=== PATIENT | female | born 1995 | race African-American/Black ===

== ENCOUNTER 2018-01-05 10:33 | Emergency (ER) | payer OTHER ==
[~2018-01-05] VITALS: Ht 172.7 cm; Wt 55.3 kg
--- NOTE | 2018-01-05 11:11 | ED GI/GU/ABDOMINAL COMPLAINT ---
History of Present Illness General Chief Complaint: Abdominal Pain/Flank Pain Stated Complaint: LOWER ABD PAIN Source: patient Exam Limitations: no limitations Vital Signs & Intake/Output Vital Signs & Intake/Output Vital Signs Date Time Temp Pulse Resp B/P B/P Pulse O2 O2 Flow FiO2 Mean Ox Delivery Rate 01/05 1916 98.3 97 17 135/73 100 Room Air 01/05 1529 97.8 94 16 119/71 100 Room Air 01/05 1154 98 Room Air 01/05 1128 98 16 135/75 98 Room Air 01/05 1036 96.1 106 16 144/86 100 Room Air Allergies Coded Allergies: No Known Allergies (01/05/18) Reconcile Medications Ciprofloxacin HCl (Cipro) 500 MG TABLET 1 TAB PO BID uti Oxycodone HCl/Acetaminophen (Percocet 5-325 MG Tablet) 5 MG-325 MG TABLET 1 TAB PO BID PRN pain Triage Note: 22 Y/O FEMALE C/O LLQ PAIN RADIATING TO L FLANK SINCE YESTERDAY. PT STATES SHE TOOK EMERGENCY CONTRACEPTIVE WEDNESDAY AND THOUGHT THIS ABDOMINAL PAIN WAS A SIDE EFFECT HOWEVER PAIN HAS WORSENED SINCE ONSET. +NAUSEA. DENIES URINARY SYMPTOMS. TOOK 3 TABS OTC "PAIN MEDICATION" PRIOR TO ARRIVAL WITH GOOD RELIEF Triage Nurses Notes Reviewed? yes ? n Is pt currently ? No Onset: Gradual Duration: day(s): Timing: recent history Quality/Severity: moderate Location: left flank Radiation: LLQ Sexually Active: Yes Last Time You Were Sexual: less than 2 months ago Sexual Orientation: Heterosexual Use of Protection: Yes Sometimes HPI: 22yo female presents to ED complaining of left-sided abdominal pain beginning yesterday. Patient states the pain started and left flank area yesterday and now is currently in left lower quadrant. Patient reports recent history of vaginal lacerations requiring stitches at [facility] on 01/01/18. At that time patient also had to use emergency contraceptive pill. Patient reports mild amount of vaginal bleeding which has been improving since laceration repair. Also reporting nausea with 2 episodes of vomiting today. Patient took Tylenol with moderate relief in her abdominal pain. Patient is sexually active with one partner, she reports swabs were done at [facility] however is unsure of results. The patient denies urinary frequency, dysuria, hematuria, diarrhea, constipation, fevers, chills. (Nancy PATTEN,Elly Brower) Past History Travel History Traveled to [place] past 21 day No Medical History Any Pertinent Medical History? none Neurological: NONE EENT: NONE Cardiovascular: NONE Respiratory: NONE Gastrointestinal: NONE Hepatic: NONE Renal: NONE Musculoskeletal: NONE Psychiatric: NONE Endocrine: NONE Blood Disorders: NONE Cancer(s): NONE TRANSPORTATION MODELER/Reproductive: NONE Surgical History Surgical History: non-contributory Psychosocial History What is your primary language Albanian Tobacco Use: Never used Family History Hx Contributory? No (Elly Colon) Review of Systems Review of Systems Constitutional: Reports: no symptoms. EENTM: Reports: no symptoms. Respiratory: Reports: no symptoms. Cardiovascular: Reports: no symptoms. GI: Reports: see HPI. Genitourinary: Reports: see HPI. Musculoskeletal: Reports: no symptoms. Skin: Reports: no symptoms. Neurological/Psychological: Reports: no symptoms. Hematologic/Endocrine: Reports: no symptoms. Immunologic/Allergic: Reports: no symptoms. All Other Systems: Reviewed and Negative (Elly Colon) Physical Exam Physical Exam General Appearance: well developed/nourished, no apparent distress, alert, awake Head: atraumatic, normal appearance Eyes: Bilateral: normal appearance. Ears, Nose, Throat, Mouth: hearing grossly normal Neck: normal inspection, supple, full range of motion Respiratory: normal breath sounds, no respiratory distress, lungs clear Cardiovascular: regular rate/rhythm Gastrointestinal: normal bowel sounds, soft, no organomegaly, LLQ tenderness Pelvic: normal external genitalia, stitches in place in right vaginal wall without active bleeding from site, scant blood present in vaginal vault, small amount of white discharge around cervical os, no cervical motion tenderness Back: normal inspection, normal range of motion, no CVA tenderness Extremities: normal range of motion Neurologic/Psych: awake, alert, oriented x 3 Skin: intact, normal color, warm/dry Core Measures ACS in differential dx? No Sepsis Present: No Sepsis Focused Exam Completed? No (Elly Colon) Progress Differential Diagnosis: appendicitis, bowel obstruction, diverticulitis, ectopic , hernia, intrauterine , kidney stone, ovarian cyst, ovarian torsion, PID/cervicitis, SBO, threatened AB, UTI/pyelo Plan of Care: Orders Procedure Date/time Status URINE 01/05 UNK Active Add-on Test (ER Only) 01/05 1342 Active CULTURE,URINE 01/05 1221 Active TRICHOMONAS 01/05 1221 Complete POTASSIUM HYDROXIDE (RADHA) 01/05 122 Complete GENITAL CULTURE 01/05 1221 Active CHLAMYDIA-GC DNA PROBE 01/05 1221 Active HUMAN BETA HCG SCREEN 01/05 1155 Complete URINALYSIS 01/05 1034 Complete COMPREHENSIVE METABOLIC PANEL 01/05 1034 Complete CBC WITHOUT DIFFERENTIAL 01/05 1034 Complete Laboratory Tests 01/05/18 1155: Anion Gap 12, Estimated GFR > 60, BUN/Creatinine Ratio 10.0, Glucose 128 H, Calcium 9.4, Total Bilirubin 0.3, AST 18, ALT 26, Alkaline Phosphatase 48, Total Protein 7.0, Albumin 4.2, Globulin 2.8, Albumin/Globulin Ratio 1.5, Total Beta HCG NEGATIVE, CBC w Diff MAN DIFF ORDERED, RBC 3.59 L, MCV 88.2, MCH 30.1, MCHC 34.1, RDW 12.8, MPV 8.0, Gran % 85.5 H, Lymphocytes % 9.9 L, Monocytes % 4.1, Eosinophils % 0, Basophils % 0.5, Absolute Granulocytes 5.1, Segmented Neutrophils 81 H, Band Neutrophils 5, Absolute Lymphocytes 0.6 L, Lymphocytes 10 L, Monocytes 4, Absolute Monocytes 0.2, Eosinophils 0, Absolute Eosinophils 0, Basophils 0, Absolute Basophils 0, Metamyelocytes 0, Platelet Estimate ADEQUATE, Polychromasia 1+, Hypochromic-Microcytic 1+, Anisocytosis 1+ 01/05/18 1120: Urine Color YEL, Urine Clarity HAZY H, Urine pH 6.0, Ur Specific [place] >= 1.030, Urine Protein 30 H, Urine Ketones >=80, Urine Nitrite NEG, Urine Bilirubin NEG@ICTO, Urine Urobilinogen 1.0, Ur Leukocyte Esterase TRACE H, Ur Microscopic SEDIMENT EXAMINED, Urine RBC >75 H, Urine WBC 25-50 H, Ur Epithelial Cells PACKD H, Urine Bacteria MANY H, Hyaline Casts RARE H, Urine Mucus PACKD H, Urine Hemoglobin LARGE H, Urine Glucose NEG Microbiology 01/05 1222 GENITAL: GC DNA Probe - RECD 01/05 1222 GENITAL: Chlamydia DNA Probe (FLORI) - RECD 01/05 1222 GENITAL: Trichomonas Preparation - COMP 01/05 1222 GENITAL: Genital Culture - RECD 01/05 1221 URINE ROUT: Urine Culture - ORD 01/05 1221 GENITAL: RADHA Preparation - COMP No cervical motion tenderness on speculum exam. Swabs were sent to the lab. CT scan shows 5 mm kidney stone in left UVJ with mild hydronephrosis. Patient's labs are stable. UA with signs of infection. Patient states she feels improvement and Toradol however still has some pain. Patient medicated with fluids and morphine. Patient feels hungry, requesting food tray. Following morphine and fluids patient reports relief of her pain. She is tolerating PO, vital signs are stable, she is in no acute distress, nontoxic appearing. Patient to follow up with urology regarding her nephrolithiasis. She was started on Percocet and antibiotics. The patient is afebrile, no leukocytosis. She was given strict return precautions. Patient agrees with the plan of care. The patient was discussed with Dr. Hester who agrees with this plan. Diagnostic Imaging: Viewed by Me: Radiology Read. Discussed w/RAD: Radiology Read. Radiology Impression: PATIENT: CATHIE ORONA PRESENT AGE: 22 PATIENT ACCOUNT NO: [id number] : 94 LOCATION: [facility] ORDERING PHYSICIAN: Elly PATTEN SERVICE DATE: 01/05/18 EXAM TYPE: CAT - CT ABD & PELVIS W ORAL & IV CO EXAMINATION: CT ABDOMEN AND PELVIS WITH CONTRAST CLINICAL INFORMATION: Left lower quadrant pain. Flank pain. COMPARISON: None TECHNIQUE: Multidetector volumetric imaging was performed of the abdomen and pelvis following IV administration of 95 mL of Optiray 320 intravenous contrast. Sagittal and coronal reformatted images were obtained on the technologist's workstation. DLP: 242.89 mGy-cm FINDINGS: LUNG BASES: The visualized lung bases are unremarkable. LIVER, GALLBLADDER, AND BILIARY TREE: The liver is normal in size, shape, and attenuation. No focal hepatic lesion or biliary ductal dilatation is present. The gallbladder is unremarkable with no evidence of radiopaque gallstones, gallbladder wall thickening, or obvious pericholecystic inflammatory changes. PANCREAS: Unremarkable. SPLEEN: Unremarkable. ADRENAL GLANDS: Unremarkable. KIDNEYS AND URETERS: Left kidney: There is mild hydronephrosis of the left renal collecting system with mild dilatation of the renal pelvis and calyces and the proximal left ureter. Difficult to track the distal left ureter through the pelvis. There is a calcification though in the left side of the pelvis on image 532 (3), measuring 5 mm, likely a distal left ureter stone causing the mild hydronephrosis at the ureterovesical junction. There is no additional stone of the left kidney or collecting system. The overall enhancement of the cortex of left kidney is relatively diminished compared to the right kidney, due to the hydronephrosis. Enhancement of the cortex is homogeneous. No evidence of edema around the kidney, no evidence of pyelonephritis. Right kidney: The right kidney and ureter are normal. BLADDER: Unremarkable. GASTROINTESTINAL TRACT: The small and large bowel are unremarkable. The appendix is unremarkable. ABDOMINAL WALL: No significant hernia is appreciated. LYMPH NODES: Normal. VASCULAR: Unremarkable. PELVIC VISCERA: Bilateral adnexal follicle/cyst. Measures 2.2 cm on left and 1.5 cm in the right. The uterus is anteverted. OSSEOUS STRUCTURES: Unremarkable. IMPRESSION: Mild hydronephrosis of left kidney due to an obstructing 5 mm stone at the left ureterovesical junction. DICTATED BY: Tim Song MD DATE/TIME DICTATED:01/05/181614 E/M ENGINEER:REFUGIO DATE/TIME TRANSCRIBED:1614 CONFIDENTIAL, DO NOT COPY WITHOUT APPROPRIATE AUTHORIZATION. < Electronically signed in Other Vendor System> SIGNED BY: Tim Song MD 1635 Initial ED EKG: none (Nancy PATTEN,Elly Brower) Departure Departure Disposition: HOME OR SELF CARE Condition: Stable Clinical Impression Primary Impression: Kidney stone Secondary Impressions: Abdominal pain Qualifiers: Abdominal location: unspecified location Qualified Code: R10.9 - Unspecified abdominal pain Referrals: Sharita LINARES,Augustus Riley Patient Has No Primary Care Dr (PCP/Family) Additional Instructions: Take Percocet as prescribed as needed for pain, do not drive or drink alcohol with taking this medication. Take full course of antibiotics. Follow-up with urologist referred to you today regarding her kidney stone. With any worsening symptoms such as severe pain despite use of pain medication, fevers, vomiting please return to the emergency department. Please note that there might be incidental findings in your evaluation that are unrelated to the current emergency department visit. Please notify your primary care doctor about this emergency department visit in order to obtain and review all of the testing performed so that these incidental findings can be monitored as needed. If you had an x-ray performed, please understand that some fractures may not be seen on the initial set of x-rays. If your symptoms persist you might need a repeat set of x-rays to check for such a fracture. If you had a laceration evaluated, please understand that foreign bodies such as glass or wood may not be visible to the naked eye or on plain x-rays. If the wound becomes red, swollen, increasingly more painful or if there is any drainage from the wound, please have it reevaluated by a physician for the possibility of a retained foreign body. If you're unable to follow up as outlined in the discharge instructions please return to the emergency department. Thank you for choosing the [facility] Emergency Department for your care. It was a pleasure to serve you today. Departure Forms: Customer Survey General Discharge Information Prescriptions: Current Visit Scripts Oxycodone HCl/Acetaminophen (Percocet 5-325 MG Tablet) 1 TAB PO BID PRN pain #10 TAB Ciprofloxacin HCl (Cipro) 1 TAB PO BID #10 TAB (Nancy PATTEN,Elly Brower) PA/BENZOL OPERATOR Co-Sign Statement Statement: ED Attending supervision documentation- [] I saw and evaluated the patient. I have also reviewed all the pertinent lab results and diagnostic results. I agree with the findings and the plan of care as documented in the PA's/BENZOL OPERATOR's documentation. [X] I have reviewed the ED Record and agree with the PA's/BENZOL OPERATOR's documentation. [] Additions or exceptions (if any) to the PAs/BENZOL OPERATOR's note and plan are summarized below: [] (Mir LINARES,Kierra)
[2018-01-05 12:02] LABS: ABSOLUTE BASOPHIL COUNT 0 /CUMM (0.0-0.2); ABSOLUTE EOSINOPHIL COUNT 0 /CUMM (0.0-0.7); ABSOLUTE GRANULOCYTE CT 5.1 /CUMM (1.4-6.5); ABSOLUTE LYMPH COUNT 0.6 /CUMM (1.2-3.4); ABSOLUTE MONOCYTE COUNT 0.2 /CUMM (0.10-0.60); BASOPHIL % 0.5 % (0.0-2.0); EOSINOPHIL % 0 % (0-5); GRANULOCYTE % 85.5 % (42.2-75.2); HEMATOCRIT 31.6 % (37-47); MEAN CORPUSCULAR HGB 30.1 PG (27.0-31.0); MEAN CORPUSCULAR HGB CONC 34.1 G/DL (33.0-37.0); MEAN CORPUSCULAR VOLUME 88.2 FL (81.0-99.0); PLATELET COUNT 268 /CUMM (130-400); RBC DISTRIBUTION WIDTH 12.8 % (11.5-14.5); RED BLOOD CELL CT 3.59 /CUMM (4.20-5.40); WHITE BLOOD CELL COUNT 5.9 /CUMM (4.8-10.8)
--- NOTE | 2018-01-05 16:36 | CT SCAN REPORT ---
EXAMINATION: CT ABDOMEN AND PELVIS WITH CONTRAST CLINICAL INFORMATION: Left lower quadrant pain. Flank pain. COMPARISON: None TECHNIQUE: Multidetector volumetric imaging was performed of the abdomen and pelvis following IV administration of 95 mL of Optiray 320 intravenous contrast. Sagittal and coronal reformatted images were obtained on the technologist's workstation. DLP: 242.89 mGy-cm FINDINGS: LUNG BASES: The visualized lung bases are unremarkable. LIVER, GALLBLADDER, AND BILIARY TREE: The liver is normal in size, shape, and attenuation. No focal hepatic lesion or biliary ductal dilatation is present. The gallbladder is unremarkable with no evidence of radiopaque gallstones, gallbladder wall thickening, or obvious pericholecystic inflammatory changes. PANCREAS: Unremarkable. SPLEEN: Unremarkable. ADRENAL GLANDS: Unremarkable. KIDNEYS AND URETERS: Left kidney: There is mild hydronephrosis of the left renal collecting system with mild dilatation of the renal pelvis and calyces and the proximal left ureter. Difficult to track the distal left ureter through the pelvis. There is a calcification though in the left side of the pelvis on image 532 (3), measuring 5 mm, likely a distal left ureter stone causing the mild hydronephrosis at the ureterovesical junction. There is no additional stone of the left kidney or collecting system. The overall enhancement of the cortex of left kidney is relatively diminished compared to the right kidney, due to the hydronephrosis. Enhancement of the cortex is homogeneous. No evidence of edema around the kidney, no evidence of pyelonephritis. Right kidney: The right kidney and ureter are normal. BLADDER: Unremarkable. GASTROINTESTINAL TRACT: The small and large bowel are unremarkable. The appendix is unremarkable. ABDOMINAL WALL: No significant hernia is appreciated. LYMPH NODES: Normal. VASCULAR: Unremarkable. PELVIC VISCERA: Bilateral adnexal follicle/cyst. Measures 2.2 cm on left and 1.5 cm in the right. The uterus is anteverted. OSSEOUS STRUCTURES: Unremarkable. IMPRESSION: Mild hydronephrosis of left kidney due to an obstructing 5 mm stone at the left ureterovesical junction.
[2018-01-05] MEDS ORDERED: PERCOCET 5-3251 EACH PO (19:09)
[2018-01-05] MEDS ORDERED: CIPRO500 M1 PO (19:09)
[2018-01-05 19:16] VITALS: BP 135/73
== END 2018-01-05 19:17 ==
LOC: ERH 10:33
PROVIDERS: Physician Assistant Medical
DX: N20.0 Calculus of kidney (principal); R11.10 Vomiting, unspecified
CPT/HCPCS: 87070; 74177; 81001; 81025; 87086; 87491; 87591; 96374; 96375; J1885; J2405; J3101